=== PATIENT | female | born 1945 | race Caucasian/White ===

== ENCOUNTER 2020-07-18 23:10 | Inpatient (IN) | payer MEDICARE, OTHER ==
[~2020-07-18] VITALS: Ht 165.1 cm; Wt 106.6 kg
[2020-07-18 23:16] VITALS: BP 79/39
[2020-07-19] VITALS (12 sets, daily range): BP systolic 110–158; BP diastolic 56–75
[2020-07-19 00:07] LABS: ABSOLUTE BASOPHILS 0.1 thou/uL (0.0-0.2); ABSOLUTE LYMPHOCYTES 3.6 thou/uL (0.8-5.3); ABSOLUTE MONOCYTES 0.8 thou/uL (0.0-1.2); ABSOLUTE NEUTROPHILS 6.8 thou/uL (1.6-8.1); BASOPHILS 0.7 %; EOSINOPHILS 0.3 %; HEMATOCRIT 42.6 % (37.0-47.0); HEMOGLOBIN 14.3 gm/dL (12.0-15.0); LYMPHOCYTES 31.5 %; MCH 30.6 pg (26.0-34.0); MCHC 33.5 g/dL (28.0-37.0); MCV 91.4 fL (80.0-100.0); MONOCYTES 7.4 %; MPV 7.9 fl. (7.2-11.1); NUCLEATED RBCS 0 /100WBC; PLATELET COUNT* 408 thou/uL (150-400); POLYS 60.1 %; RBC 4.66 mil/uL (4.20-5.00); RDW-CV 13.5 % (10.5-14.5); WBC 11.3 thou/uL (4.0-11.0)
[2020-07-19 00:10] LABS: URINE BILIRUBIN NEGATIVE (Negative); URINE BLOOD NEGATIVE (Negative); URINE CLARITY CLEAR; URINE COLOR YELLOW; URINE GLUCOSE-RANDOM NEGATIVE (Negative); URINE KETONES NEGATIVE (Negative); URINE LEUKOCYTES TRACE (Negative); URINE NITRITE NEGATIVE (Negative); URINE PROTEIN NEGATIVE (Negative); URINE SPECIFIC GRAVITY <= 1.005 (1.005-1.030); URINE UROBILINOGEN 0.2 E.U./dl (0.2-1.0)
[2020-07-19 00:11] LABS: CREATININE 1.3 mg/dL (0.6-1.3); POTASSIUM 3.4 mmol/L (3.5-5.1)
[2020-07-19 00:12] LABS: APTT 26.1 Seconds (25.0-31.3); PROTIME 10.7 Seconds (9.20-11.50)
[2020-07-19 00:16] LABS: TOTAL BILIRUBIN 0.5 mg/dL (<0.1-1.0); TOTAL PROTEIN 6.4 g/dL (6.4-8.2)
[2020-07-19 00:17] LABS: AMP/METHAMP Negative (Negative); BARBITURATES Negative (Negative); BENZODIAZEPINES Negative (Negative); COCAINE Negative (Negative); METHADONE Negative (Negative); OPIATES Negative (Negative); PCP Negative (Negative); THC Negative (Negative)
[2020-07-19] MEDS ORDERED: PREGABALIN75 MG (00:29)
[2020-07-19 00:30] LABS: SQUAMOUS 0-3 Few /LPF (0-3); TRANSITIONAL EPITHEL CELL 0-3 Few /LPF (None Seen); URINE RBC 0-2 Rare /HPF (0-2); URINE WBC 6-15 Few /HPF (0-5); WBC CLUMPS Few (None Seen)
[2020-07-19] MEDS ORDERED: PREGABALIN150 MG (00:30)
[2020-07-19 00:31] LABS: BACTERIA >30 Many /HPF (None Seen); CASTS None Seen /LPF (None Seen); CRYSTALS None Seen /LPF (None Seen); MUCUS 4-6 Moderate strn/LPF (None Seen)
[2020-07-19] MEDS ORDERED: NORVASC 2.5 MG2.5 M1 PO (00:31)
[2020-07-19] MEDS ORDERED: PRAVASTATIN SOD40 MG (00:31)
[2020-07-19] MEDS ORDERED: CARVEDILOL25 MG (00:32)
[2020-07-19] MEDS ORDERED: PERCOCET 5-3251 EACH (00:32)
[2020-07-19] MEDS ORDERED: DULOXETINE HCL60 MG (00:33)
[2020-07-19] MEDS ORDERED: LINZESS145 MCG (00:34)
[2020-07-19] MEDS ORDERED: SPIRONOLACTONE25 MG PO (03:58)
[2020-07-19] MEDS ORDERED: FUROSEMIDE 20 M20 M1 PO (03:59)
[2020-07-19] MEDS ORDERED: COZAAR 25 MG TA25 M1 PO (04:00)
[2020-07-19] MEDS ORDERED: BAYER CHEWABLE81 MG PO (04:16)
--- NOTE | 2020-07-19 05:27 | NUR ---
PT TO ROOM 2 AT 0345 ACCOMPANIED BY RN AND ON 2L O2 PER NC. DENIES PAIN. TIRED AND HAD TO BE STIMULATED TO COMPLETE ASSESSMENT, BUT A$OX4 AND APPROPRIATE. FALL PRECAUTIONS IN PLACE. CALL LIGHT WITHIN REACH. WILL CONTINUE MONITORING OR REMAINDER OF SHIFT.
--- NOTE | 2020-07-19 10:40 | EKG ---
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
--- NOTE | 2020-07-19 10:46 | EKG ---
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
[2020-07-19 10:59] LABS: CALCIUM 8.8 mg/dL (8.5-10.1); MAGNESIUM 2.2 mg/dL (1.8-2.4); POTASSIUM 4.7 mmol/L (3.5-5.1)
--- NOTE | 2020-07-19 13:50 | 2DMMODE ---
[place] [address] 2 D/M-MODE ECHOCARDIOGRAM Name: MATTHEW BANSAL Room: [address] IN [facility]#: [id number] Admission: 07/19/20 Attend Phys: Enedina Ku, Discharge: Date of : 47 Date of Service: 07/19/20 1350 Report #: [id number] THIS REPORT FOR: cc: FAM - Family physician unknown FAM - Family physician unknown Sudeep Mcgee MD [facility] ~ APPROVED REPORT Study performed: 07/19/2020 09:57:44 EXAM: Comprehensive 2D, Doppler, and color-flow Echocardiogram Patient Location: In-Patient Room #: 002 Status: routine BSA: 2.12 HR: 58 bpm BP: 110/67 mmHg Rhythm: NSR Other Information Study Quality: Good Indications AMS 2D Dimensions IVSd: 10.26 (7-11mm) LVOT Diam: 18.64 (18-24mm) LVDd: 50.24 mm PWd: 10.73 (7-11mm) Ascending Ao: 30.78 (22-36mm) LVDs: 27.50 (25-40mm) Aortic Root: 30.59 mm Volumes Left Atrial Volume (Systole) LA ESV Index: 25.70 mL/m2 Aortic Valve AoV Peak Dominic.: 1.53 m/s AO Peak Gr.: 9.41 mmHg LVOT Max P.88 mmHg AO Mean Gr.: 5.62 mmHg LVOT Mean P.95 mmHg LVOT Max V: 1.21 m/s AO V2 VTI: 38.86 cm LVOT Mean V: 0.79 m/s NATY (VTI): 2.22 cm2 LVOT V1 VTI: 31.67 [place] [address] 2 D/M-MODE ECHOCARDIOGRAM Name: MATTHEW BANSAL Room: [address] IN M.R.#: [id number] Admission: 07/19/20 Attend Phys: Enedina Ku, Discharge: Date of : 47 Date of Service: 07/19/20 1350 Report #: [id number] Mitral Valve E/A Ratio: 0.88 MV Decel. Time: 265.21 ms MV E Max Dominic.: 1.00 m/s MV PHT: 76.91 ms MVA (PHT): 2.86 cm2 TDI E/Lateral E': 10.00 E/Medial E': 9.09 Medial E' Dominic.: 0.11 m/s Lateral E' Dominic.: 0.10 m/s Pulmonary Valve PV Peak Dominic.: 0.82 m/s PV Peak Gr.: 2.68 mmHg Tricuspid Valve RAP Estimate: 5.00 mmHg TR Peak Gr.: 31.61 mmHg RVSP: 36.00 mmHg PA Pressure: 36.00 mmHg Left Ventricle The left ventricle is normal size. There is normal LV segmental wall motion. There is normal left ventricular wall thickness. Left ventricular systolic function is normal. LVEF is 55-60%. Grade I - abnormal relaxation pattern. Right Ventricle The right ventricle is normal size. The right ventricular systolic function is normal. Atria The left atrium size is normal. The right atrium size is normal. Aortic Valve The aortic valve is normal in structure. No aortic regurgitation is present. There is no aortic valvular stenosis. Mitral Valve The mitral valve is normal in structure. Mild mitral regurgitation. No evidence of mitral valve stenosis. Tricuspid Valve The tricuspid valve is normal in structure. Trace tricuspid regurgitation. Mild pulmonary hypertension. The RVSP is 35-40 [place] [address] 2 D/M-MODE ECHOCARDIOGRAM Name: MATTHEW BANSAL Room: [address]#: [id number] Admission: 07/19/20 Attend Phys: Enedina Ku, Discharge: Date of : 47 Date of Service: 07/19/20 1350 Report #: [id number] Pulmonic Valve The pulmonary valve is normal in structure. There is no pulmonic valvular regurgitation. Great Vessels The aortic root is normal in size. IVC is normal in size and collapses >50% with inspiration. Pericardium There is no pericardial effusion. <Conclusion> The left ventricle is normal size. There is normal left ventricular wall thickness. Left ventricular systolic function is normal. LVEF is 55-60%. Grade I - abnormal relaxation pattern. Mild mitral regurgitation. Trace tricuspid regurgitation. Mild pulmonary hypertension. The RVSP is 35-40 mmHg. IVC is normal in size and collapses >50% with inspiration. <ELECTRONICALLY SIGNED> By: Sudeep Mcgee MD, FACC 07/19/20 1350 1350 1350 Sudeep Mcgee MD, FACC /INF
--- NOTE | 2020-07-19 14:00 | NUR ---
ASSUMED CARE OF PATIENT THIS AFTERNOON FROM THE ICU. PT IS DOING WELL WITH NO CO OF PAIN OR NAUSEA. SHE WAS EDUCATED ON POC AND DISEASE PROCESS. SHE WAS EDUCATED ON FALL SAFETY AND USING THE CALL LIGHT FOR ASSISTANCE. WILL CONTINUE TO MONITOR.
--- NOTE | 2020-07-19 15:34 | NUR ---
ICU rounds: Tele status, possible dc home tomorrow. Pt is A&O. Resides at home alone. Independent. No DME. Pt has a cane that she uses for mobility in the community, also as a walker, but rarely uses it. No home o2. No hx of HH or SNF. Cardiology adjusting meds. Goal is home at dc, no needs. Supportive family and friends.
[2020-07-20 00:05] VITALS: BP 156/66
[2020-07-20 04:00] VITALS: BP 166/67
[2020-07-20 05:38] LABS: ABSOLUTE LYMPHOCYTES 2.5 thou/uL (0.8-5.3); ABSOLUTE MONOCYTES 0.6 thou/uL (0.0-1.2); ABSOLUTE NEUTROPHILS 4.6 thou/uL (1.6-8.1); BASOPHILS 0.6 %; EOSINOPHILS 0.2 %; HEMATOCRIT 41.5 % (37.0-47.0); HEMOGLOBIN 14.2 gm/dL (12.0-15.0); LYMPHOCYTES 32.2 %; MCH 31.6 pg (26.0-34.0); MCHC 34.3 g/dL (28.0-37.0); MCV 92.1 fL (80.0-100.0); MONOCYTES 8.2 %; MPV 8.2 fl. (7.2-11.1); NUCLEATED RBCS 0 /100WBC; PLATELET COUNT* 345 thou/uL (150-400); POLYS 58.8 %; RBC 4.51 mil/uL (4.20-5.00); RDW-CV 13.4 % (10.5-14.5); WBC 7.7 thou/uL (4.0-11.0)
--- NOTE | 2020-07-20 05:56 | NUR ---
PT CARE ASSUMED AT 1930. SAT MAINTAINED IN O2. ALERT AND ORIENTED X4. DENIES PAIN. SOB WITH EXERTION. CALL LIGHT WITHIN REACH AND BED IN LOW POSITION. HOURLY ROUNDING DONE FOR PT SAFETY.
[2020-07-20 05:58] LABS: ALBUMIN 2.9 g/dL (3.4-5.0); CALCIUM 8.8 mg/dL (8.5-10.1); CREATININE 0.9 mg/dL (0.6-1.3); POTASSIUM 4.1 mmol/L (3.5-5.1); TOTAL BILIRUBIN 0.4 mg/dL (<0.1-1.0); TOTAL PROTEIN 6.3 g/dL (6.4-8.2)
[2020-07-20 08:07] VITALS: BP 199/83
[2020-07-20] MEDS ORDERED: COREG6.25 MG PO (09:07)
[2020-07-20] MEDS ORDERED: KEFLEX500 M1 PO (09:07)
--- NOTE | 2020-07-20 10:16 | EKG ---
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
--- NOTE | 2020-07-20 11:38 | NUR ---
Remains on IVABX. Pt on 2L of o2, attempt to wean prior to dc, if Pt requires o2 at dc, will need to have an ex ox to confirm. If qualifies, fax H&P, facesheet and RT note to Deandra at [facility] [phone], will need to have tank delivered to room if needs with activity. No further needs, Pt declined HH.
[2020-07-20 11:47] VITALS: BP 183/77
--- NOTE | 2020-07-20 13:51 | NUR ---
VERBAL OK FROM DILMA LOMELI TO DISCHRGE PT PER CARDIOLOGY.
[2020-07-20 14:13] VITALS: BP 183/77
--- NOTE | 2020-07-20 14:38 | NUR ---
PT DISCHARGED TO HOME. COPY OF DISCHARGE PAPERWORK AND PRESCRIPTIONS TO PT WITH EXPLAINATION. PT VERBALIZED UNDERSTANDING. IV ACCESS AND CLINICAL PARTNER REMOVED. PT AWAITING HER RIDE.
== END 2020-07-20 14:55 | disposition home or self-care (01) | DRG 640 ==
LOC: M.ERS 23:10 → M.2W 07-19 01:33 → M.ICU 07-19 01:33 → M.TBA-ER 07-19 01:33 → M.ICU 07-19 03:04 → M.2W 07-19 13:26
PROVIDERS: Internal Medicine; Personal Emergency Response Attendant; ADMIT Internal Medicine; ATTEND Internal Medicine
DX: E86.0 Dehydration (principal); G92 Toxic encephalopathy; N39.0 Urinary tract infection, site not specified; I50.32 Chronic diastolic (congestive) heart failure; F32.9 Major depressive disorder, single episode, unspecified; E78.5 Hyperlipidemia, unspecified; I11.0 Hypertensive heart disease with heart failure; M19.90 Unspecified osteoarthritis, unspecified site; F41.9 Anxiety disorder, unspecified; F10.129 Alcohol abuse with intoxication, unspecified; Y90.9 Presence of alcohol in blood, level not specified; Z20.828 Contact with and (suspected) exposure to other viral communicable diseases; Z79.899 Other long term (current) drug therapy; Z88.5 Allergy status to narcotic agent